=== PATIENT | male | born 2000 | race Caucasian/White ===

== ENCOUNTER → 2023-04-06 09:52 | Outpatient (CLI) | payer OTHER, SELFPAY ==
--- NOTE | ~2023-04-06 | MR_ITS ---
EXAMINATION: MR lumbar spine wo con DATE: 04/06/2023 10:22 INDICATION: Sprain of lumbar spine and pelvis TECHNIQUE: Magnetic resonance imaging (MRI) of the lumbar spine was performed without intravenous con trast. Sequences included sagittal T2-weighted FSE, sagittal T2-weighted FS FSE, sagittal T1-weighted FSE, and axial T2-weighted FSE. COMPARISON: None FINDINGS: Alignment is normal. Vertebral body heights are normal. Normal marrow signal. Disc heights are jeanette l. The conus medullaris terminates at L1. There is normal signal in the caudal spinal cord. Paraverte bral soft tissues are unremarkable. The following disc levels are specifically discussed: T12-L1: The disc does not extend beyond the endplate margin. There is minimal bilateral facet joint o steoarthritis. There is no neural foraminal stenosis. There is no central canal stenosis. L1-L2: The disc does not extend beyond the endplate margin. There is mild bilateral facet joint osteo arthritis. There is no neural foraminal stenosis. There is no central canal stenosis. L2-L3: The disc does not extend beyond the endplate margin. There is mild bilateral facet joint osteo arthritis. There is no neural foraminal stenosis. There is no central canal stenosis. L3-L4: Small right foraminal zone disc protrusion. There is mild left and minimal right facet joint o steoarthritis. There is mild right neural foraminal stenosis. There is no central canal stenosis. L4-L5: Disc is mildly bulging. There is mild bilateral facet joint osteoarthritis. There is mild bila teral neural foraminal stenosis. There is minimal central canal stenosis with mild narrowing of the l eft and right lateral recesses. L5-S1: Disc is minimally bulging. There is mild bilateral facet joint osteoarthritis. There is no ofelia ral foraminal stenosis. There is no central canal stenosis. IMPRESSION: 1. Minimal lumbar spondylosis. Reviewed, dictated and finalized at location B. [facility]
== END ==
DX: S33.9XXA Sprain of unspecified parts of lumbar spine and pelvis, initial encounter (principal); X58.XXXA Exposure to other specified factors, initial encounter
CPT/HCPCS: 72148